=== PATIENT | male | born 2000 | race Caucasian/White ===

== ENCOUNTER 2022-04-25 08:09 | Day surgery (SDC) | payer OTHER ==
[~2022-04-25] VITALS: Ht 175.3 cm; Wt 84.4 kg
[2022-04-25 08:30] VITALS: BP 124/82; PULSE 77; TEMP 97.2
[2022-04-25 10:00] VITALS: BP 107/72; PULSE 73; TEMP 96.7
[2022-04-25 10:15] VITALS: BP 90/74; PULSE 67
[2022-04-25 10:30] VITALS: BP 126/86; PULSE 69
== END 2022-04-25 10:50 | disposition home or self-care (01) ==
LOC: SDCO 08:09
DX: D12.5 Benign neoplasm of sigmoid colon (principal); K62.89 Other specified diseases of anus and rectum; F17.290 Nicotine dependence, other tobacco product, uncomplicated
CPT/HCPCS: J2704; J7120

== ENCOUNTER 2022-05-23 07:29 | Day surgery (SDC) | payer OTHER ==
[~2022-05-23] VITALS: Ht 175.3 cm; Wt 87.6 kg
[2022-05-23 08:01] VITALS: BP 123/76; PULSE 74; TEMP 97
[2022-05-23] MEDS ORDERED: NEOMYCIN S500 MG/TAB PO (08:07)
[2022-05-23] MEDS ORDERED: AMOXICILLIN 8751 TAB PO (08:07)
[2022-05-23 09:05] VITALS: BP 107/87; PULSE 69; TEMP 97.1
--- NOTE | 2022-05-23 09:05 | NUR ---
PATIENT ARRIVES TO ROOM 1 VIA CART. ASSIST X 2 TO CHAIR. AT BEDSIDE. VITAL SIGNS WNL. PATIENT REQUESTS MUFFINS AND NOTHING TO DRINK AT THIS TIME. WAITING FOR DOCTOR TO SPEAK WITH PATIENT. WILL CONTINUE TO MONITOR.
[2022-05-23 09:20] VITALS: BP 119/76; PULSE 69
--- NOTE | 2022-05-23 09:20 | NUR ---
PATIENT IS DOING WELL. TOLERATED MUFFINS WITHOUT NAUSEA. VITAL SIGNS WNL. DOCTOR AT BEDSIDE, WILL CONTINUE TO MONITOR.
[2022-05-23 09:35] VITALS: BP 111/72; PULSE 66
--- NOTE | 2022-05-23 09:35 | NUR ---
PATIENT IS READY FOR DISCHARGE. IV REMOVED. DISCHARGE INSTRUCTIONS REVIEWED WITH PATIENT AND . PATIENT TAKEN DOWNSTAIRS VIA WHEELCHAIR.
== END 2022-05-23 09:55 | disposition home or self-care (01) ==
LOC: SDCO 07:29
DX: Z12.11 Encounter for screening for malignant neoplasm of colon (principal); D12.5 Benign neoplasm of sigmoid colon; K63.5 Polyp of colon; D12.0 Benign neoplasm of cecum; Z86.010 Personal history of colon polyps; K62.89 Other specified diseases of anus and rectum
CPT/HCPCS: J2704; J3010; J7120